=== PATIENT | female | born 1970 | race Caucasian/White ===

== ENCOUNTER 2017-10-03 17:54 | Observation (INO) ==
[2017-10-03] MEDS ORDERED: Naloxone 0.4 MG/ML INJ IVP PRN (22:29)
[2017-10-03] MEDS ORDERED: Ondansetron 4 MG/2 ML VIAL IVP PRN (22:29)
[2017-10-03] MEDS ORDERED: Acetaminophen 325 MG TABLET PO PRN (22:29)
[2017-10-03] MEDS ORDERED: Dextrose Gel 15 GM PO PRN ×2 (22:45)
[2017-10-03] MEDS ORDERED: D5% in Water 1,000 ML IVC PRN (22:45)
[2017-10-03] MEDS ORDERED: *HR* Dextrose 50 % in Water (Syg) 50 ML SYRINGE IVP PRN (22:45)
--- NOTE | 2017-10-03 22:50 | Internal Med History&Physical ---
<Silvana Thompson - Last Filed: 10/03/17 22:51> Date of Encounter: 10/03/17 Time of Encounter: 22:49 Assessment and Plan (1) TIA (transient ischemic attack) Current visit: Yes Status: Suspected Patient had an episode where she was unable to speak and appeared confused. Symptoms did not last and resolved on their own CT of head was negative Continue with NIHSS assessment Obtain lipid profile Continue with statin and aspirin Continuous cardiac monitoring Obtain MRI in the a.m. Obtain carotid duplex Cardiac echo Fall-precaution Qualifiers: Transient cerebral ischemia type: unspecified Qualified Code(s): G45.9 - Transient cerebral ischemic attack, unspecified (2) Diabetes Current visit: No Status: Chronic Continue with Accu-Cheks before meals at bedtime with sliding scale insulin Diabetic diet Qualifiers: Diabetes mellitus type: type 2 Diabetes mellitus complication status: with neurologic complications Diabetes mellitus complication detail: with unspecified neuropathy Diabetes mellitus senior care insulin use: with intermediate card tender use Qualified Code(s): E11.40 - Type 2 diabetes mellitus with diabetic neuropathy, unspecified; Z79.4 - custodial (current) use of insulin; Z79.4 - petroleum terminal plant operator (current) use of insulin; Z79.4 - petroleum terminal plant operator (current) use of insulin; Z79.4 - petroleum terminal plant operator (current) use of insulin (3) Hypertension Current visit: No Status: Chronic Continue with clonidine Qualifiers: Hypertension type: essential hypertension Qualified Code(s): I10 - Essential (primary) hypertension (4) End stage renal disease Current visit: Yes Status: Chronic 1 patient receives dialysis Sunday with Dr. Salazar. We will continue dialysis regime consult nephrology-consult has been placed day team to follow up Monitor intake and output daily weights Avoid nephrotoxins Internal Medicine - H&P: HPI Chief complaint: AMS Admitted From: Hospital to Hospital Transfer Plans for Post Hospital Care: Home History of present illness: Ms. Eden is a 47 year old female with past medical history of end-stage renal disease on dialysis Sunday and Sunday-Dr. Salazar-hypertension diabetes and heart failure. Patient receives dialysis Sunday. According to the patient she was at dialysis today when she experienced mild confusion. Dialysis staff was concerned because patient appeared disheveled with poor hygiene and appeared confused which was not her baseline. According to the patient she states she was unable to speak she could answer yes or no questions. She was sent to [facility] emergency department for evaluation from dialysis. According to ER records upon arrival to emergency department the patient was able to answer questions the patient has a history of diabetes her blood sugar was 222 however over the past 2 days she presented to the ER with episodes of hypoglycemia. Lab work was obtained and she did have some hypokalemia otherwise unremarkable. CT of head with no acute process chest x- ray was negative. ER physician did speak with color checker Dr. Velasquez who advised patient be admitted for observation due to neurological changes. Patient was transferred to [facility] for further workup and evaluation. Presently patient is alert and appropriate she does follow commands she does recall the incident that occurred today. Cranial nerves II through XII are intact there are no focal deficits noted. Continue to review this case with Dr. Ramirez who agrees with plan Past Med Surg Social Fam HX - Past Medical History Medical history: diabetes, hypertension Psychiatric history: depression - Past Surgical History Surgical History: hysterectomy - Social History Smoking Status: Never smoker Smokeless Tobacco Status: No Alcohol use: none Drug use: none Internal Medicine - H&P: Meds 3 Allergy/AdvReac Type Severity Reaction Status Date / Time amlodipine [From Norvasc] Allergy Rash Verified 10/07/15 10:11 clonazepam [From Klonopin] Allergy Rash Verified 10/07/15 10:11 All Systems PM: A 10-system review of systems was performed and is negative for pertinent findings except as documented above in the HPI. - Constitutional Constitutional: no chills, no fever(s), no night sweats - EENT Eyes: no change in vision, no discharge, no pain, no photophobia Nose, mouth and throat: no dysphagia, no nasal discharge, no neck pain, no sore throat - Cardiovascular Cardiovascular ROS IM: no chest pain, no diaphoresis, no dyspnea, no lightheadedness, no palpitations, no syncope - Respiratory Respiratory: no cough, no dyspnea, no wheezing, no excessive phlegm production - Gastrointestinal Gastrointestinal: no abdominal pain, no diarrhea, no hematemesis, no hematochezia, no melena, no nausea, no vomiting - Genitourinary Genitourinary: no change in urinary stream, no dysuria, no flank pain, no hematuria - Musculoskeletal Musculoskeletal ROS IM: no numbness, no tingling - Integumentary Integumentary IM: no rash, no unusual bruising - Neurological Neurological ROS: no confusion, no convulsions, no focal weakness, no numbness, no tingling, no tremor(s) - Hematologic/Lymphatic Hematologic/Lymphatic: no easy bruising - Constitutional Vitals: Temp Pulse Resp BP Pulse Ox 98.3 F 87 16 138/85 96 10/03/17 20:21 10/03/17 20:21 10/03/17 20:21 10/03/17 20:21 10/03/17 20:21 General appearance: Present: disheveled, A&O X 3, answers questions appropriately - Head Head exam: Present: atraumatic, normocephalic - Eye Eye exam: Present: PERRL, conjuntiva pink, sclera anicteric Pupils: Present: PERRL - Neck Neck exam general surgery: Present: supple, trachea midline. Absent: lymphadenopathy - Respiratory Respiratory exam: Present: CTAB. Absent: accessory muscle use, rales, rhonchi, wheezes - Cardiovascular Cardiovascular exam: Present: RRR, +S1, +S2. Absent: diastolic murmur, gallop, rubs, systolic murmur - GI/Abdominal GI/Abdominal exam: Present: normal bowel sounds, soft, no peritoneal signs. Absent: distended, tenderness - Extremities Exam Extremities exam: Present: warm, radial pulses palpable and symmetrical. Absent : calf tenderness, cyanotic, pedal edema - Neurological Exam Neurological exam: Present: CN II-XII intact, oriented X3, no focal deficits, strengths equal and symetr throughout. Absent: pronater drift, facial droop, speech deficit - Skin Skin exam: Present: dry, intact Internal Med - H&P Results - Labs Labs: Lab work drawn today at [facility]. ABG pH 7.46 PCO2 44 PO2 44 bicarbonate 31.3 base excess 6.6 O2 sat 83 Magnesium to ammonia 14 WBC 6.5 hemoglobin 11.4 hematocrit 33.7 platelets 134 Sodium 135 potassium 3.2 chloride 93 CO2 is 32 BUN 22 glucose 222 calcium 8.6 creatinine 4.10 GFR 11.6 total bili 0.5 AST 20 ALT 22 <James-Elias Edward - Last Filed: 10/04/17 02:28> Date of Encounter: 10/03/17 Internal Medicine - H&P: HPI History of present illness: Ms. Eden is a 47 year old female All Systems PM: A 10-system review of systems was performed and is negative for pertinent findings except as documented above in the HPI. - Constitutional Vitals: Temp Pulse Resp BP Pulse Ox 97.6 F 66 16 135/75 85 10/03/17 23:26 10/03/17 23:26 10/03/17 23:26 10/03/17 23:26 10/03/17 23:26 Internal Med - H&P Results - Labs Labs: Cardiac Enzymes 10/03/17 Range/Units 23:02 Troponin I 0.02 (0-0.03) ng/mL - Attending Attestation I examined this patient and my medical decision-making was reviewed with the CLIENT SERVICE CONSULTANT. I agree with the documented findings, disposition and treatment plan as described except to the extent set forth below. I have seen and examined the patient. Patient is a 47-year-old female with past medical history of ESRD on dialysis, diabetes, hypertension and depression. Patient presents to the ED altered mental status. Patient is apparently on dialysis this morning and had some episodes of confusion. She initially went to [facility], and was then transferred here. Patient has presented to the ED recently with episodes of hypoglycemia. CT of the head done on the outside facility is negative and x-rays also negative. Patient will need evaluation for possible TIA or CVA. She has no obvious focal deficits, but does seem to be confused at this time. No other acute complaints. Denies chest pain or shortness of breath or headache or dizziness. Patient has been explained about her condition plan of care in detail. She understood and agreed. No unanswered questions. No family members at bedside. CODE STATUS full code.
[2017-10-04 06:09] LABS: Basophils % 0.7 %; Eosinophils # 0.1 K/mcL (0.0-0.6); Eosinophils % 1.7 %; Hematocrit 33.2 % (35.3-44.9); Hemoglobin 10.5 g/dL (11.5-15.4); Immature Granulocytes % 0.3 % (0-4); Lymphocytes # 0.9 K/mcL (0.6-4.6); Lymphocytes % 14.8 %; Mean Corpuscular HGB Conc 31.6 g/dL (31.6-35.5); Mean Corpuscular Hemoglobin 26.1 pg (28.0-33.3); Mean Corpuscular Volume 82.6 fL (83.0-100.0); Mean Platelet Volume 13.4 fL (9.4-12.4); Monocytes # 0.9 K/mcL (0.0-1.3); Monocytes % 15.3 %; Platelet Count 118 K/mcL (140-400); Red Blood Count 4.02 M/mcL (3.82-4.97); Red Cell Distribution Width 16.3 % (11.5-14.5); Segmented Neutrophils % 67.2 %
[2017-10-04 06:22] LABS: Calcium 8.3 mg/dL (8.6-10.8); Chol/HDL Ratio 6.7 (0-4.9); Potassium 4.1 mEq/L (3.5-4.5)
--- NOTE | 2017-10-04 08:35 | Nephrology Consult Note ---
Date of Encounter: 10/04/17 Time of Encounter: 08:31 Assessment and Plan (1) End stage renal disease Current Visit: Yes Status: Chronic Plan for HD tomorrow Strict I/Os-ordered Renal diet-ordered Fluid restriction 1.5 liters/day-ordered Patient is very non-compliant with renal diet, fluid restriction, and meds. (2) TIA (transient ischemic attack) Current Visit: Yes Status: Suspected per primary team Qualifiers: Transient cerebral ischemia type: unspecified Qualified Code(s): G45.9 - Transient cerebral ischemic attack, unspecified (3) Diabetes Current Visit: No Status: Chronic per primary team Triglycerides 349 Qualifiers: Diabetes mellitus type: type 2 Diabetes mellitus complication status: with neurologic complications Diabetes mellitus complication detail: with unspecified neuropathy Diabetes mellitus halfway insulin use: with middle or intermediate school principal use Qualified Code(s): E11.40 - Type 2 diabetes mellitus with diabetic neuropathy, unspecified; Z79.4 - half-way (current) use of insulin; Z79.4 - petroleum terminal plant operator (current) use of insulin; Z79.4 - petroleum terminal plant operator (current) use of insulin; Z79.4 - petroleum terminal plant operator (current) use of insulin History of Present Illness - Reason for Consult Consult date: 10/04/17 - Chief Complaint AMS - History of Present Illness Ms. Eden is a 47 year old female well known to our practice with a PMH of ESRD on dialysis Sunday and Sunday-Dr. Salazar-hypertension diabetes and heart failure. I received a call fromt the [facility] nurse yesterday stating patient was not acting her normal self but vitals were stable. Advised to finish her HD treatment then go to ED for evaluation. At the ED her blood sugar was 222 however over the past 2 days she presented to the ER with episodes of hypoglycemia. CT of head with no acute process. Past Med Surg Social Fam HX - Past Medical History Medical history: diabetes, hypertension Psychiatric history: depression - Past Surgical History Surgical History: hysterectomy - Social History Smoking Status: Never smoker Smokeless Tobacco Status: No Alcohol use: none Drug use: none Medications and Allergies traZODone [TraZODone] 50 mg PO HS 10/03/17 [History] Apixaban [Eliquis] 5 mg PO BID 10/04/17 [History] Aspirin [Lo-Dose Aspirin EC] 81 mg PO 10/04/17 [History] BuPROPion [Wellbutrin] 10/04/17 [History] Carvedilol 3.125 mg PO BID 10/04/17 [History] Citalopram Hydrobromide [Citalopram HBr] 40 mg PO 10/04/17 [History] Ergocalciferol (VITAMIN D2) [Drisdol (50,000 Unit)] 50,000 unit PO QWEEK [History] HYDROcodone/Acet 5/325 mg Q6HR PRN 10/04/17 [History] Levothyroxine [Synthroid] 12.5 mcg PO 10/04/17 [History] Ondansetron HCl [Zofran] 4 mg PO Q4HR PRN 10/04/17 [History] Pregabalin [Lyrica] 150 mg PO BID 10/04/17 [History] Simvastatin [Zocor] 20 mg PO 10/04/17 [History] cloNIDine HCl [Clonidine HCl] 0.2 mg PO 10/04/17 [History] 3 Allergy/AdvReac Type Severity Reaction Status Date / Time amlodipine [From Norvasc] Allergy Rash Verified 10/07/15 10:11 clonazepam [From Klonopin] Allergy Rash Verified 10/07/15 10:11 Review of Systems All Systems: reviewed and no additional remarkable complaints except as stated Constitutional: no chills, no fever(s), no lethargy, no malaise Cardiovascular: leg edema, no chest pain, no dyspnea Respiratory: no cough, no dyspnea Gastrointestinal: no nausea, no vomiting Neurological: behavioral changes, confusion Exam - Vital Signs Vital signs: Initial Vital Signs Temp Pulse Resp BP Pulse Ox 98.3 F 87 16 138/85 96 10/03/17 20:21 10/03/17 20:21 10/03/17 20:21 10/03/17 20:21 10/03/17 20:21 Vital Signs - Last 8 Hours Temp Pulse Resp BP Pulse Ox 10/04/17 07:10 98.2 F 88 16 141/77 100 10/04/17 03:38 98.2 F 86 16 102/39 99 Intake and Output 10/03/17 10/04/17 10/04/17 23:59 07:59 15:59 Other: # Voids 0 0 # Bowel Movements 0 0 Weight 103.1 kg Blood Glucose* 341 - General Appearance General appearance: obese EENT: ATNC, mucous membranes moist, hearing intact, vision intact Neck: supple Respiratory: clear Cardiology: normal S1, normal S2 - Dialysis Access Dialysis Vascular Access: Arteriovenous Fistula Gastrointestinal: no tenderness, no guarding, obese Integumentary: warm and dry Neurologic: alert and oriented x3 Psychiatric: mood/affect appropriate, cooperative Results - Lab Results 10/04/17 04:21 10/04/17 04:21 Most recent lab results Calcium 8.3 mg/dL (8.6-10.8) L 10/04/17 04:21 Magnesium 2.0 mg/dL (1.6-2.6) 10/04/17 04:21 Consult Discharge Plan - Plan Referrals: NONE,PCP [Primary Care Provider] -
[2017-10-04] MEDS: Aspirin Enteric Coated 81 MG Tablet PO SCH (09:31)
[2017-10-04] MEDS: APIXABAN 5 MG TABLET PO SCH ×2 (09:31→20:45)
[2017-10-04] MEDS: Insulin LISPRO 300 UNITS/3 ML VIAL SQ SCH ×3 (09:31→17:11)
[2017-10-04] MEDS: Cholecalciferol (D-3) 1,000 UNIT TABLET PO SCH (09:31)
--- NOTE | 2017-10-04 09:47 | Internal Med Progress Note ---
<Jonatan Nobles - Last Filed: 10/04/17 17:26> Date of Encounter: 10/04/17 Time of Encounter: 09:43 - Assessment and plan (1) TIA (transient ischemic attack) Current Visit: Yes Status: Suspected Assessment and plan: Episode of confusion and Transient aphasia CT head negative Continue statin + aspirin Plan for MRI, carotid duplex, echocardiogram today Qualifiers: Transient cerebral ischemia type: unspecified Qualified Code(s): G45.9 - Transient cerebral ischemic attack, unspecified (2) Diabetes Current Visit: No Status: Chronic Assessment and plan: Accu-Cheks before meals at bedtime with sliding scale insulin Diabetic diet Qualifiers: Diabetes mellitus type: type 2 Diabetes mellitus complication status: with neurologic complications Diabetes mellitus complication detail: with unspecified neuropathy Diabetes mellitus intermodal customer service insulin use: with intermodal customer service use Qualified Code(s): E11.40 - Type 2 diabetes mellitus with diabetic neuropathy, unspecified; Z79.4 - [facility] (current) use of insulin; Z79.4 - long term care administrator (current) use of insulin; Z79.4 - [facility]FP (current) use of insulin; Z79.4 - [facility]FP (current) use of insulin (3) Hypertension Current Visit: No Status: Chronic Assessment and plan: Blood pressure has been stable, 141/77 this morning Continue Coreg Qualifiers: Hypertension type: essential hypertension Qualified Code(s): I10 - Essential (primary) hypertension (4) End stage renal disease Current Visit: Yes Status: Chronic Assessment and plan: Nephrology is following, appreciate recommendations Plan is for hemodialysis today - Subjective Interval history: 47-year-old female presented to ED 10/03/17 after transient confusion while receiving dialysis, possible TIA vs. CVA. Initial CT head at outside facility negative. No obvious focal deficits or other acute complaints. She does have diabetes and blood sugar at time of the event was 222 however she has been seen at the ER recently for hypoglycemia. ESRD on dialysis M/W/F Patient was seen and evaluated at bedside this morning. She was alert and oriented 3. She recalls having difficulty speaking when she was at dialysis earlier and states that she does not feel like her mentation or speech is different than usual. She is speaking slowly however, difficult to gauge as I do not know her baseline. She denies chest pain, shortness of breath or other new complaints - Constitutional Vitals: Temp Pulse Resp BP Pulse Ox 98.2 F 88 16 141/77 100 10/04/17 07:10 10/04/17 07:10 10/04/17 07:10 10/04/17 07:10 10/04/17 07:10 General appearance: Present: disheveled, A&O X 3, answers questions appropriately - Respiratory Respiratory exam: Present: CTAB. Absent: accessory muscle use, rales, rhonchi, wheezes - Cardiovascular Cardiovascular exam: Present: RRR, +S1, +S2. Absent: diastolic murmur, gallop, rubs, systolic murmur - GI/Abdominal GI/Abdominal exam: Present: normal bowel sounds, soft, no peritoneal signs. Absent: distended, tenderness - Extremities Exam Extremities exam: Present: pedal edema (1+ on left). Absent: normal inspection (Right sided below knee amputation), tenderness - Neurological Exam Neurological exam: Present: alert, oriented X3, no focal deficits Internal Medicine: Result - Labs CBC & Chem 7: 10/04/17 04:21 10/04/17 04:21 Labs: Short CBC 10/04/17 Range/Units 04:21 WBC 6.0 (4.3-11.1) K/mcL Hgb 10.5 L (11.5-15.4) g/dL Hct 33.2 L (35.3-44.9) % Plt Count 118 L (140-400) K/mcL Neutrophils # 4.0 (1.6-8.9) K/mcL BMP 10/04/17 04:21 Sodium 135 L Potassium 4.1 Chloride 93 L Carbon Dioxide 25 BUN 36 H Creatinine 6.59 H Glucose 393 H Calcium 8.3 L Cardiac Enzymes 10/03/17 10/04/17 Range/Units 23:02 04:21 Troponin I 0.02 0.02 (0-0.03) ng/mL Consult Discharge Plan - Plan Referrals: NONE,PCP [Primary Care Provider] - <Nadir Barahona - Last Filed: 10/05/17 08:01> Date of Encounter: 10/04/17 - Constitutional Vitals: Temp Pulse Resp BP Pulse Ox 97.7 F 85 15 150/72 98 10/05/17 07:52 10/05/17 07:52 10/05/17 07:52 10/05/17 07:52 10/05/17 07:52 Internal Medicine: Result - Labs CBC & Chem 7: 10/05/17 03:21 10/05/17 03:21 Labs: Short CBC 10/05/17 Range/Units 03:21 WBC 7.0 (4.3-11.1) K/mcL Hgb 10.2 L (11.5-15.4) g/dL Hct 32.6 L (35.3-44.9) % Plt Count 121 L (140-400) K/mcL Neutrophils # 4.8 (1.6-8.9) K/mcL BMP 10/05/17 03:21 Sodium 137 Potassium 4.4 Chloride 94 L Carbon Dioxide 23 BUN 60 H D Creatinine 8.54 H Glucose 243 H Calcium 8.2 L Cardiac Enzymes 10/04/17 Range/Units 09:59 Troponin I 0.02 (0-0.03) ng/mL - Impressions Impressions Brain MRI 10/04/17 08:00 IMPRESSION: No acute intracranial abnormality. D/ / Rudi Maxwell MD / Rudi Maxwell MD Interpreting Provider: Rudi Maxwell MD Echocardiogram 10/04/17 22:31 Impressions: Technically sub-optimal due to body habitus. LVEF 60-65%. Normal LV chamber size and function. Mild concentric left ventricular hypertrophy. Mild left ventricular diastolic dysfunction. Right ventricle not well visualized. Unable to accurately estimate RVSP due to lack of adequate TR jet. No obvious significant valvular dysfunction. Left Ventricular Wall Motion: Rest Echo Findings All wall segments showed normal motion. Findings: Study Quality * Technically sub-optimal due to body habitus. ECG Findings * Normal sinus rhythm. Left Ventricle * LVEF 60-65%. * Normal LV chamber size and function. * Mild concentric left ventricular hypertrophy. * Mild left ventricular diastolic dysfunction. Right Ventricle * Right ventricle not well visualized. Left Atrium * Grossly, mild to moderately dilated left atrium. Right Atrium * Right atrium is not well visualized. Interatrial Septum * Interatrial septum not well evaluated. Aortic Valve * Aortic valve not well visualized. * No aortic regurgitation. * No aortic stenosis. Mitral Valve * Mitral valve not well visualized. * No mitral regurgitation. * No mitral stenosis. Tricuspid Valve * Tricuspid valve not well visualized. * No tricuspid regurgitation. * Unable to estimate RVSP due to lack of TR jet. Pulmonic Valve * Pulmonic valve not well visualized. Aorta * Normally sized aortic root. Pericardium * The pericardium appears normal. IVC * The IVC is not well evaluated. Pulmonary Artery * Pulmonary artery not well visualized. - Attending Attestation I conducted a face to face diagnostic evaluation of this patient and my medical decision-making was reviewed with the Resident Physician, Dr Jonatan Nobles. I agree with the documented findings, disposition and treatment plan as described except to the extent set forth below: Patient is currently awake alert oriented 3. Speech is fluent, there no gross focal neurological deficits. We will complete workup for CVA given sudden onset of slurred speech and altered mental status.
[2017-10-04] MEDS ORDERED: Perflutren Lipid Microsphere 1.3 ML in 0.9 % Sodium Chloride 8.7 ML IVP ONE (16:06)
[2017-10-04] MEDS ORDERED: Perflutren Lipid Microsphere 2 ML VIAL ONE (16:11)
[2017-10-04] MEDS ORDERED: traZODone 50 MG TABLET PO SCH (21:00)
[2017-10-04] MEDS ORDERED: Insulin LISPRO 300 UNITS/3 ML VIAL SQ SCH (21:00)
[2017-10-04] MEDS ORDERED: *HR* HYDROcodone/Acet 5/325 mg TABLET PO ONE (23:41)
[2017-10-05 04:05] LABS: Basophils % 0.4 %; Eosinophils # 0.1 K/mcL (0.0-0.6); Hematocrit 32.6 % (35.3-44.9); Hemoglobin 10.2 g/dL (11.5-15.4); Immature Granulocytes % 0.6 % (0-4); Lymphocytes % 14.6 %; Mean Corpuscular HGB Conc 31.3 g/dL (31.6-35.5); Mean Corpuscular Hemoglobin 25.6 pg (28.0-33.3); Mean Corpuscular Volume 81.9 fL (83.0-100.0); Mean Platelet Volume 13.2 fL (9.4-12.4); Monocytes # 0.9 K/mcL (0.0-1.3); Monocytes % 13.2 %; Neutrophils # 4.8 K/mcL (1.6-8.9); Platelet Count 121 K/mcL (140-400); Red Blood Count 3.98 M/mcL (3.82-4.97); Red Cell Distribution Width 16.2 % (11.5-14.5); Segmented Neutrophils % 69.2 %
[2017-10-05 04:17] LABS: Calcium 8.2 mg/dL (8.6-10.8); Potassium 4.4 mEq/L (3.5-4.5)
[2017-10-05] MEDS ORDERED: 0.9 % Sodium Chloride 250 ML IVC PRN (05:01)
[2017-10-05] MEDS ORDERED: Levothyroxine 25 MCG TABLET PO SCH (06:30)
--- NOTE | 2017-10-05 08:26 | Discharge Summary ---
<GiulianoJonatanzack Mendez - Last Filed: 10/05/17 08:21> Date of Encounter: 10/05/17 Time of Encounter: 08:22 - Discharge Diagnosis (1) TIA (transient ischemic attack) Priority: Primary Status: Suspected Qualifiers: Transient cerebral ischemia type: unspecified Qualified Code(s): G45.9 - Transient cerebral ischemic attack, unspecified (2) Diabetes Priority: Secondary Status: Chronic Qualifiers: Diabetes mellitus type: type 2 Diabetes mellitus complication status: with neurologic complications Diabetes mellitus complication detail: with unspecified neuropathy Diabetes mellitus long-term insulin use: with long-term use Qualified Code(s): E11.40 - Type 2 diabetes mellitus with diabetic neuropathy, unspecified; Z79.4 - roasterman (current) use of insulin; Z79.4 - roasterman (current) use of insulin; Z79.4 - roasterman (current) use of insulin; Z79.4 - roasterman (current) use of insulin (3) Hypertension Priority: Secondary Status: Chronic Qualifiers: Hypertension type: essential hypertension Qualified Code(s): I10 - Essential (primary) hypertension (4) End stage renal disease Priority: Secondary Status: Chronic - Discharge Medications Prescriptions: Atorvastatin [Lipitor] 40 mg PO HS #30 tablet Carvedilol [Coreg] 3.125 mg PO BIDWM #15 tablet Pregabalin [Lyrica] 75 mg PO DAILY #30 capsule Pregabalin [Lyrica] 75 mg PO MOWEFR@1800 #12 capsule Home Medications: traZODone [TraZODone] 100 mg PO HS 10/03/17 [History] Apixaban [Eliquis] 5 mg PO BID 10/04/17 [History] Aspirin 325 mg PO DAILY 10/04/17 [History] BuPROPion [Wellbutrin] 75 mg PO BID 10/04/17 [History] Calcium Acetate [Phos-LO] 1,334 mg PO TIDWM 10/04/17 [History] Diphenoxylate/Atropine [Lomotil 2.5 mg/0.025 mg] 1 each PO QID PRN 10/04/17 [ History] Ergocalciferol (VITAMIN D2) [Drisdol (50,000 Unit)] 50,000 unit PO QWEEK [History] Furosemide [Lasix] 80 mg PO BID 10/04/17 [History] HYDROcodone/Acet 5/325 mg [[place] 5-325 mg] 1 tab PO Q4H PRN 10/04/17 [History] Insulin ASPART [NovoLOG] 0 unit SQ TIDWM 10/04/17 [History] Insulin Glargine [Lantus] 14 unit SQ BID 10/04/17 [History] Isosorbide MONOnitrate (24 HR) [Imdur] 60 mg PO DAILY 10/04/17 [History] Lanthanum Carbonate [Fosrenol] 2,000 mg PO TIDWM 10/04/17 [History] Levothyroxine [Synthroid] 25 mcg PO QAM 10/04/17 [History] Multivitamin [One Daily Multivitamin] 1 each PO DAILY 10/04/17 [History] NIFEdipine [Nifedipine ER] 60 mg PO BID 10/04/17 [History] Ondansetron HCl [Zofran] 4 mg PO Q8H PRN 10/04/17 [History] Patiromer Calcium Sorbitex [Veltassa] 8.4 gm PO DAILY 10/04/17 [History] Ranitidine HCl [Zantac] 150 mg PO DAILY 10/04/17 [History] Sucroferric Oxyhydroxide [Velphoro] 1,000 mg PO TIDWM 10/04/17 [History] rOPINIRole [Requip] 1 mg PO HS 10/04/17 [History] Atorvastatin [Lipitor] 40 mg PO HS #30 tablet 10/05/17 [Rx] Carvedilol [Coreg] 3.125 mg PO BIDWM #15 tablet 10/05/17 [Rx] Pregabalin [Lyrica] 75 mg PO DAILY #30 capsule 10/05/17 [Rx] Pregabalin [Lyrica] 75 mg PO MOWEFR@1800 #12 capsule 10/05/17 [Rx] Allergies/Adverse Reactions: 3 Allergy/AdvReac Type Severity Reaction Status Date / Time amlodipine [From Norvasc] Allergy Rash Verified 10/07/15 10:11 clonazepam [From Klonopin] Allergy Rash Verified 10/07/15 10:11 Procedures/tests Complete & Pending: Procedures Performed prior 72 hours Category Date Time Status MR head/brain wo con [MR] Routine MRI 10/04/17 08:00 Completed EV carotid duplex imaging BI Routine Y 10/04/17 22:32 Completed EV echocardiogram w enhance Routine Y 10/04/17 22:31 Completed Date of admission: 10/03/17 19:41 Primary care physician: PCP NONE Consults: 10/03/17 22:50 Consult to Nephrology [CONS] Routine Consulting Provider: [facility] Key/NEGRITO/MEENAKSHI/TAMIKO Reason for Consult: ESRD- dialysis M W F Time Notified: 22:51 Call Completed: No 10/05/17 05:15 Consult to Dialysis [CONS] ONCE Discharging clinician: Nadir Barahona Anticipated date of discharge: 10/05/17 - Patient Status Disposition: Home, Self-Care Condition: Fair Functional capacity at discharge: wheelchair bound Overall status at discharge: patient is back to baseline - Discharge Instructions Instructions: Diabetes Mellitus Type 2 in Adults (DC), Chronic Hypertension (DC ), End-Stage Kidney Disease (DC) Follow Up With: Charlotte Atkinson CNP [Advanced Practice Nurse] - 10/12/17 9:30 am (please follow up as schedule...) - Diet and Activity Activity: increase activity as tolerated, resume usual activities as tolerated Hospital course: Ms. Eden is a 47-year-old female presented to ED 10/03/17 after transient confusion while receiving dialysis, possible TIA vs. CVA. Initial CT head at outside facility negative. No obvious focal deficits or other acute complaints. She does have diabetes with history of recent hypoglycemic episodes however blood sugar at time of the event was 222. Although somewhat challenging to determine as we are unfamiliar with the patient's baseline mental status, she herself reports that she felt like she was back to her normal self shortly after the event. Her speech was somewhat slow but she was alert and oriented 3, without any focal deficits. We obtained MRI brain and carotid ultrasound which were both normal. Echocardiogram showed normal LVEF 60- 65%, mild left ventricular diastolic dysfunction, no obvious valvular dysfunction. Patient also has ESRD on dialysis M/W/F which was administered during her hospitalization. She will follow-up with nephrology as an outpatient as scheduled. Of note, patient has been taking well over the maximum dose of Lyrica given her ESRD and this was reduced upon discharge. We also increased her statin to high intensity. Recommend follow-up with PCP and nephrology. - Time Spent with Patient Total time spent providing and/or coordinating discharge services: - Constitutional Vitals: Temp Pulse Resp BP Pulse Ox 97.7 F 85 15 150/72 98 10/05/17 07:52 10/05/17 07:52 10/05/17 07:52 10/05/17 07:52 10/05/17 07:52 General appearance: Present: cooperative, A&O X 3, pleasant, no acute distress, answers questions appropriately - Respiratory Respiratory exam: Present: CTAB. Absent: accessory muscle use, rales, rhonchi, wheezes - Cardiovascular Cardiovascular exam: Present: RRR, +S1, +S2. Absent: diastolic murmur, gallop, rubs, systolic murmur - GI/Abdominal GI/Abdominal exam: Present: normal bowel sounds, soft, no peritoneal signs. Absent: distended, tenderness - Extremities Exam Extremities exam: Present: pedal edema (1+ on left), warm. Absent: normal inspection (Right sided below knee amputation) - Neurological Exam Neurological exam: Present: alert, oriented X3, no focal deficits <Nadir Barahona - Last Filed: 10/07/17 17:18> Date of Encounter: 10/05/17 Procedures/tests Complete & Pending: Procedures Performed prior 72 hours Category Date Time Status EV carotid duplex imaging BI Routine Y 10/04/17 22:32 Completed EV echocardiogram w enhance Routine Y 10/04/17 22:31 Completed Date of admission: 10/03/17 19:41 Primary care physician: PCP NONE Consults: 10/03/17 22:50 Consult to Nephrology [CONS] Routine Consulting Provider: [facility]/NEGRITO/MEENAKSHI/TAMIKO Reason for Consult: ESRD- dialysis M W F Time Notified: 22:51 Call Completed: No 10/05/17 05:15 Consult to Dialysis [CONS] ONCE Hospital course: Ms. Eden is a 47 year old female - Time Spent with Patient Total time spent providing and/or coordinating discharge services: - Constitutional Vitals: Temp Pulse Resp BP Pulse Ox 97.4 F L 84 18 125/52 94 10/05/17 17:00 10/05/17 11:16 10/05/17 17:00 10/05/17 17:00 10/05/17 11:16 - Attending Attestation I conducted a face to face diagnostic evaluation of this patient and my medical decision-making was reviewed with the Resident Physician, Dr Jonatan Nobles. I agree with the documented findings, disposition and treatment plan as described except to the extent set forth below: Patient is awake alert oriented. Heart exam reveals regular rate and rhythm. Neurologic exam is nonfocal. Plan: Patient is back to baseline and will be discharged home.
[2017-10-05 08:43] LABS: Hepatitis B Surface Antigen Nonreactive (Nonreactive)
[2017-10-05] MEDS: Cholecalciferol (D-3) 1,000 UNIT TABLET PO SCH (08:52)
[2017-10-05] MEDS: APIXABAN 5 MG TABLET PO SCH (08:52)
[2017-10-05] MEDS: Aspirin Enteric Coated 81 MG Tablet PO SCH (08:52)
[2017-10-05] MEDS: Insulin LISPRO 300 UNITS/3 ML VIAL SQ SCH ×3 (08:54→17:52)
--- NOTE | 2017-10-05 14:54 | Nephrology Progress Note ---
Date of Encounter: 10/05/17 Time of Encounter: 11:15 - Assessment and Plan (1) End stage renal disease Current Visit: Yes Status: Chronic HD with UF as tolerated planned today Continue renal diet Lytes WNL (2) Altered mental status Current Visit: Yes Status: Acute Appears resolved and at baseline. Etiology unclear might have been medication related Qualifiers: Altered mental status type: transient alteration of awareness Qualified Code(s): R40.4 - Transient alteration of awareness Subjective Interval history: Intreim events noted. Pt seen and examined resting comfortably but arousable Objective - Vital Signs Vital signs: Vital Signs Temp Pulse Resp BP Pulse Ox 10/05/17 11:16 98.3 F 84 16 145/68 94 10/05/17 07:52 97.7 F 85 15 150/72 98 10/05/17 03:20 97.9 F 80 18 142/76 96 10/04/17 23:29 86 19 152/77 98 10/04/17 18:55 98.2 F 88 17 159/76 99 10/04/17 17:16 97.6 F 87 16 142/79 99 Intake and Output 10/04/17 10/05/17 10/05/17 23:59 07:59 15:59 Intake Total 240 / 240 Balance 240 / 240 Intake: Oral 240 / 240 Other: Meal Breakfast Percent of Meal Consumed 90% Weight 100 kg Blood Glucose* 284 254 317 Patient Weight 10/05/17 23:59 Weight 100 kg - General Appearance General appearance: Present: chronically ill (NAD) EENT: Present: ATNC, mucous membranes moist Neck: Present: no JVD, supple Additional Comments: good areation ant bilat Cardiology: Present: edema (LE bilat, BKA), normal S1, normal S2 Dialysis Vascular Access: Arteriovenous Fistula thrill: Yes bruit: Yes Gastrointestinal: Present: no tenderness, no guarding, obese Integumentary: Present: warm and dry Neurologic: Present: no focal deficit Musculoskeletal: Present: no deformities Psychiatric: Present: mood/affect appropriate, cooperative - Lab 10/05/17 03:21 10/05/17 03:21 Most recent lab results Calcium 8.2 mg/dL (8.6-10.8) L 10/05/17 03:21 Magnesium 2.0 mg/dL (1.6-2.6) 10/04/17 04:21 Consult Discharge Plan - Plan Instructions: Diabetes Mellitus Type 2 in Adults (DC), Chronic Hypertension (DC ), End-Stage Kidney Disease (DC) Referrals: Charlotte Atkinson CNP [Advanced Practice Nurse] - 10/12/17 9:30 am (please follow up as schedule...) Prescriptions: Atorvastatin [Lipitor] 40 mg PO HS #30 tablet Carvedilol [Coreg] 3.125 mg PO BIDWM #15 tablet Pregabalin [Lyrica] 75 mg PO DAILY #30 capsule Pregabalin [Lyrica] 75 mg PO MOWEFR@1800 #12 capsule
[2017-10-05 21:21] VITALS: BP 125/52
== END 2017-10-05 18:45 | disposition home or self-care (01) ==
LOC: 2ANU
PROVIDERS: ADMIT Internal Medicine; ATTEND Internal Medicine